=== PATIENT | male | born 1975 | race Caucasian/White ===

== ENCOUNTER 2022-10-29 10:49 | Day surgery (SDC) | payer OTHER ==
[~2022-10-29] VITALS: Ht 185.4 cm; Wt 140.2 kg
[2022-10-29] MEDS ORDERED: diphenhydrAMINE 50 MG/ML VIAL ONE (12:20)
[2022-10-29] MEDS ORDERED: MIDAZOLAM 5 MG/5 ML VIAL ONE (12:21)
[2022-10-29] MEDS ORDERED: fentaNYL citrate 0.05 MG/ML VIAL ONE (12:21)
[2022-10-29] MEDS ORDERED: LIDOCAINE 2% 100 MG/5 ML UJET TP ONE (12:21)
[2022-10-29] MEDS ORDERED: fentaNYL citrate 0.05 MG/ML VIAL IVP ONE (13:10)
[2022-10-29] MEDS ORDERED: MIDAZOLAM 5 MG/5 ML VIAL IV ONE (13:10)
[2022-10-29] MEDS ORDERED: diphenhydrAMINE 50 MG/ML VIAL IVP ONE (13:10)
== END 2022-10-29 13:35 | disposition home or self-care (01) ==
LOC: MDS 10:49 → MMU 10:55 → MDS 13:35
PROVIDERS: ATTEND Internal Medicine Gastroenterology
DX: K62.5 Hemorrhage of anus and rectum (principal); K62.89 Other specified diseases of anus and rectum; Z80.0 Family history of malignant neoplasm of digestive organs; I10 Essential (primary) hypertension; E11.9 Type 2 diabetes mellitus without complications; E66.9 Obesity, unspecified; F41.9 Anxiety disorder, unspecified; Z79.84 Long term (current) use of oral hypoglycemic drugs; Z79.899 Other long term (current) drug therapy; Z68.39 Body mass index [BMI] 39.0-39.9, adult
CPT/HCPCS: 45378; J1200; J2250; J3010